=== PATIENT | female | born 1955 | race Caucasian/White ===

== ENCOUNTER → 2023-12-30 15:54 | Outpatient (CLI) | payer MEDICARE, OTHER, SELFPAY ==
[2023-12-30 16:43] LABS: COVID-19 CEPHEID 4-PLEX PCR Negative (Negative); Influenza A - CEPHEID Flu A NEGATIVE (NEGATIVE); Influenza B - CEPHEID Flu B NEGATIVE (NEGATIVE); Respiratory Syncytial Virus Negative (Negative)
== END ==
PROVIDERS: PCP Family Medicine; Visit Provider Physician Assistant Surgical
DX: R05.9 Cough, unspecified (principal)
CPT/HCPCS: 0241U

== ENCOUNTER → 2023-12-30 16:01 | Outpatient (CLI) | payer MEDICARE, OTHER, SELFPAY ==
--- NOTE | 2023-12-30 16:06 | DI.RAD.S_ITS ---
PROCEDURE: XR CHEST 2V INDICATIONS: Cough, dyspnea TECHNIQUE: 2 views of the chest were acquired. COMPARISON: None. FINDINGS: Surgical changes and devices: None. Lungs and pleura: Lungs are clear. No pleural effusions or pneumothorax. Underlying chronic interstitial changes Mediastinum: Mediastinal contours are normal. Heart size is normal. Bones and chest wall: No suspicious bony abnormalities. Soft tissues appear unremarkable. IMPRESSION: Chronic interstitial changes without acute infiltrate or pleural effusion Approved by: Ryan Sharp M.D. on 12/30/2023 at 16:27
== END ==
LOC: RAD 16:05
PROVIDERS: PCP Family Medicine; Referring Provider Physician Assistant Surgical; Visit Provider Physician Assistant Surgical
DX: R05.9 Cough, unspecified (principal); R06.00 Dyspnea, unspecified
CPT/HCPCS: 0241U; 71046

== ENCOUNTER → 2024-01-15 15:46 | Outpatient (CLI) | payer MEDICARE, OTHER, SELFPAY ==
[2024-01-15 17:36] LABS: Add Manual Diff / Slide Review NO; Basophils Absolute Auto 0 /uL (0-100); Basophils Percent Auto 0.3 % (0-2); Eosinophils Absolute Auto 200 /uL (0-450); Eosinophils Percent Auto 2.9 % (2-4); Hematocrit 40.6 % (36-46); Hemoglobin 13.5 g/dL (12.0-16.0); Lymphocytes Absolute Auto 1600 /uL (1100-4500); Lymphocytes Percent Auto 19.4 % (25-40); Mean Corpuscular HGB Conc 33.2 % (30-36); Mean Corpuscular Hemoglobin 29.3 PG (26-34); Mean Corpuscular Volume 88.1 fL (80-100); Monocytes Absolute Auto 700 /uL (0-900); Monocytes Percent Auto 8.3 % (3-14); Neutrophils Absolute Auto 5700 /uL (1500-7000); Neutrophils Percent Auto 69.1 % (50-75); Platelet Count 398 X10^3/uL (150-400); Red Blood Cell Count 4.61 X10^6/uL (4.0-5.2); Red Cell Distribution Width 13.9 % (11.6-14.8); White Blood Cell Count 8.2 X10^3/uL (4.5-11.0)
[2024-01-15 18:37] LABS: Alanine Aminotransferase 20 IU/L (<35); Albumin 4.4 g/dL (3.5-5.0); Albumin Globulin Ratio 1.4 (1.0-2.8); Alkaline Phosphatase 93 U/L (38-126); Aspartate Aminotransferase 34 IU/L (14-36); BUN Creatinine Ratio 11.6 (6-22); Bilirubin Total 0.6 mg/dL (0.2-1.3); Blood Urea Nitrogen 8 mg/dL (7-17); Calcium 9.8 mg/dL (8.4-10.2); Carbon Dioxide 30 mmol/L (22-32); Chloride 105 mmol/L (98-107); Cholesterol 206 mg/dL (140-199); Estimated Glomerular Filt Rate > 60 mL/min (>60); Globulin 3.1 g/dL (1.7-4.1); Glucose 89 mg/dL (80-110); HDL Cholesterol 58 mg/dL (40-60); HEMOLYSIS < 15 (0-50); LDL Cholesterol Calculated 109 mg/dL (<100); Potassium 3.8 mmol/L (3.4-5.1); Sodium 138 mmol/L (137-145); Total Protein 7.5 g/dL (6.3-8.2); Triglycerides 197 mg/dL (35-150)
[2024-01-15 18:41] LABS: Hemoglobin A1C% w Est Avg Glu 5.9 % (4.0-6.0)
== END ==
PROVIDERS: PCP Family Medicine; Referring Provider Family Medicine; Visit Provider Family Medicine
DX: Z00.00 Encounter for general adult medical examination without abnormal findings (principal); I10 Essential (primary) hypertension; Z76.89 Persons encountering health services in other specified circumstances; E66.9 Obesity, unspecified
CPT/HCPCS: 36415; 80053; 80061; 83036; 85025

== ENCOUNTER 2024-07-11 08:50 | Day surgery (SDC) | payer MEDICARE, OTHER, SELFPAY ==
[2024-07-09 09:09] VITALS: BMI 31.1
[2024-07-11] VITALS (11 sets, daily range): BP systolic 86–138; BP diastolic 39–87; PULSE 62–84; RESP 12–21; TEMP 36.4–36.7; O2SAT 95–100; BMI 29.3
[2024-07-11] MEDS: LACTATED RINGERS 1,000 ML 42 ML IV (09:41)
--- NOTE | 2024-07-11 10:11 | PM.PREOP ---
Pre-operative Note COVID-19 COVID-19 status: Not tested Interval Note History & Physical reviewed/Exam performed by Physician: Yes Changes to H&P: No
[2024-07-11] MEDS: CEFAZOLIN 2 GM/100 ML PREMIX 100 ML IV (10:28)
--- NOTE | 2024-07-11 10:41 | SUR.OPER ---
Lithotomy on padded OR bed, head on pillow, arms secured on padded arm boards at <90 degrees abduction. Legs secured in padded yellow fins stirrups.
[2024-07-11] MEDS: BUPIVACAINE 0.25% (PF) 30 ML, EPINEPHrine 0.15 MG INJ (10:43)
[2024-07-11] MEDS: TRANEXAMIC ACID 1,000 MG VIAL 1000 MG INJ (12:09)
[2024-07-11] MEDS: LACTATED RINGERS 1,000 ML 500 ML IV (14:06)
--- NOTE | 2024-07-11 14:37 | P.OP_ITS ---
Operative Date/Time/Diagnoses Date of procedure: 07/11/24 Time of procedure: 10:30 Pre-op diagnosis: Uterovaginal prolapse, complete Post-op diagnosis: same Procedure & Clinicians Procedure: Procedures Operation Date: 07/11/24 10:15 Actual Procedure Side Surgeon janet Narvaez Colpocleisis & Perineoplasty José Miguel Alonzo MD Indications: Daniela is a 68-year-old , LMP at about age 48 who presented with several years of gradually worsening bulge per vagina. Her symptoms have worsened particularly since the menopause. Patient has not been on and is not currently on hormone replacement therapy. She denies any episodes of postmenopausal bleeding. Patient denies any history of YESSICA or any difficulty with bowel movements but does state that she has to reduce the vaginal bulge in order for her to effectively empty her bladder. Patient's obstetrical history is notable for 5 spontaneous vaginal births with her largest being in excess of 10 lb..The nature of her pelvic organ prolapse discussed at length along with causes and options for treatment. Patient is not sexually active and does not anticipate ever again participating in penetrative vaginal intercourse. She does not wish to try pessary use but instead would prefer to proceed with colpocleisis. Pap smear obtained and submitted. Pelvic ultrasound to evaluate endometrial stripe ordered but imaging was unable to be performed due to prolapse according to radiology. She has had no episodes of postmenopausal bleeding. After discussion regarding all options, the patient has decided to move forward with colpocleisis and perineoplasty. She presents today for her scheduled surgery. Surgeon: José Miguel Alonzo Anesthesia Type: General Operative Notes Findings: Complete UV prolapse with extensive mucosal ulcerations. Closure Type: primary Specimen(s): none Applied: catheter Estimated blood loss (mL): 200 Blood products transfused: none Procedure in detail: With the patient under satisfactory general endotracheal anesthesia in the mo dified dorsal lithotomy position, the vagina, perineum, and lower abdominal wall were prepped and draped in the usual manner for colpocleisis. A pre-surgical safety time-out was then taken in accordance with [facility] OR protocols. A short weighted speculum was placed in the vagina and the vaginal cuff identified visually. The vaginal cuff was grasped with 2 T clamps and mobilized downward. The area of mucosal incision anteriorly starting 2 cm distal to the vaginal cuff scar, 3 cm in width, and extending distal to 4 cm from the hymeneal ring was made with marking pen. Posteriorly a similar rectangle was marked from 2 cm distal to the vaginal cuff posteriorly, 3 cm in width and extending to within 4 cm of the posterior hymenal ring. Vaginal mucosa both anterior and posterior which was to be excised was infiltrated with 0.25% Marcaine with epinephrine. The mucosa both anterior and posterior was excised with sharp and blunt dissection. The most cephalic edges of the mucosa were then brought together with 2-0 Vicryl interrupted. The denuded anterior and posterior tissues were then brought together with 2-0 Vicryl using [id number] stitches at consecutive levels followed by approximation of the lateral mucosa with 2-0 Vicryl interrupted. Five layers of [id number] stitches and lateral interrupted were used to bring the denuded areas of anterior and posterior tissues together in the midline. The distal most vaginal mucosa was then brought together with 2-0 Vicryl interrupted, thus completing the performance of the colpocleisis. A small amount of bleeding was noted at the completion of the colpocliesis which was managed by application of vaginal pressure with sponge sticks and injection of Floseal into each lateral drainage resulting in complate hemostasis prior to performance of the perineoplasty. A nadege-shaped incision of the skin overlying the perineal body up into the distal most vagina was made with monopolar cutting and the mucosa excised in the usual manner. Sharp and blunt dissection was used to expose the distal levators on both sides and 0 Vicryl interrupted were used to approximate the distal levators. Additional 2-0 Vicryl stitches were used to bring the introitus together in midline and substance of the perineal body was also plicated in the midline with 2-0 Vicryl interrupted. The vaginal mucosa was then brought t ogether with 2-0 Vicryl and a running interlocking stitch all the way down to the perineal body. Case was then completed and the patient awakened from general anesthesia. She was then transferred to the PACU for a period of observation and recovery having tolerated procedure well. Complications: none Complications: none Post-operative Condition: stable Disposition: PACU Plan for aftercare: Routine postop care with follow-up scheduled for two weeks or as needed.
--- NOTE | 2024-07-11 14:56 | SUR.PHASEII ---
Pt discharged to home with spouse - upon transfer from bed to chair - pt had large bld clot, small amount of bright red blood pooled in melvin-pad - Dr. Alonzo was consulted with findings - findings reported to him wear cleared as normal and pt could be discharged from Phase II . discharged instructions were reviewed again with pt, verbalize understanding - pt able to void prior to discharge - no clots noted, bright red blood in toilet - small amount
== END 2024-07-11 15:00 | disposition home or self-care (01) ==
LOC: OR 08:51 → AC 08:51
PROVIDERS: PCP Family Medicine; Referring Provider Obstetrics & Gynecology; Visit Provider Obstetrics & Gynecology
PROC: (CPT 57120; principal; 2024-07-11 10:15)
DX: N81.3 Complete uterovaginal prolapse (principal); N76.5 Ulceration of vagina
CPT/HCPCS: 57120; J0171; J0690; J1100; J1885; J2405; J2704; J3010

== ENCOUNTER → 2024-11-04 14:17 | Outpatient (CLI) | payer MEDICARE, OTHER, SELFPAY ==
--- NOTE | 2024-11-04 14:19 | EKG_ITS ---
[place] [id number] [place] [address] Test Date: 2024-11-04 Pat Name: Daniela Abdul Department: [facility] Room: Gender: Female Substance Abuse Specialist: FINA : 1955 Requested By: Order Number: [id number] Reading MD: Jeff Bhardwaj MD Measurements Intervals [place] Rate: 86 P: 18 NH: 162 QRS: -10 QRSD: 84 T: 9 QT: 382 QTc: 457 Interpretive Statements Sinus rhythm with premature atrial complexes Nonspecific ST abnormality Electronically Signed On 11-04-2024 16:57:48 PST by Jeff Bhardwaj MD
[2024-11-04 14:42] LABS: Add Manual Diff / Slide Review NO; Basophils Absolute Auto 0 /uL (0-100); Basophils Percent Auto 0.8 % (0-2); Eosinophils Absolute Auto 200 /uL (0-450); Hematocrit 36.4 % (36-46); Hemoglobin 11.9 g/dL (12.0-16.0); Lymphocytes Absolute Auto 1400 /uL (1100-4500); Lymphocytes Percent Auto 26.2 % (25-40); Mean Corpuscular HGB Conc 32.6 % (30-36); Mean Corpuscular Hemoglobin 26.3 PG (26-34); Mean Corpuscular Volume 80.4 fL (80-100); Monocytes Absolute Auto 400 /uL (0-900); Monocytes Percent Auto 6.6 % (3-14); Neutrophils Absolute Auto 3400 /uL (1500-7000); Neutrophils Percent Auto 63.4 % (50-75); Platelet Count 419 X10^3/uL (150-400); Red Blood Cell Count 4.53 X10^6/uL (4.0-5.2); Red Cell Distribution Width 13.8 % (11.6-14.8); White Blood Cell Count 5.4 X10^3/uL (4.5-11.0)
[2024-11-04 14:45] LABS: Appearance Urine UA CLEAR; Bilirubin Urine UA NEGATIVE (NEGATIVE); Color Urine UA YELLOW; Glucose Urine UA NEGATIVE (Negative); Ketones Urine UA NEGATIVE (NEGATIVE); Leukocyte Esterase Urine UA TRACE (NEGATIVE); Nitrite Urine UA NEGATIVE (Negative); Occult Blood Urine UA NEGATIVE (Negative); Protein Urine UA NEGATIVE (Negative); Urine Volume 10mL (spun)
[2024-11-04 14:46] LABS: Bacteria Urine None Seen; Culture Indicated Urine Cult Not Indicated; RBC Urine None Seen (0-5/HPF); Squamous Epithelial Cell Urine 0-1 /HPF (0-5/HPF); WBC Urine 0-1/HPF (0-5/HPF)
[2024-11-04 14:50] LABS: Hemoglobin A1C% w Est Avg Glu 5.5 % (4.0-6.0)
[2024-11-04 15:06] LABS: BUN Creatinine Ratio 13.6 (6-22); Blood Urea Nitrogen 12 mg/dL (7-17); Calcium 9.6 mg/dL (8.4-10.2); Carbon Dioxide 27 mmol/L (22-32); Chloride 104 mmol/L (98-107); Estimated Glomerular Filt Rate > 60 mL/min (>60); Glucose 125 mg/dL (80-110); HEMOLYSIS < 15 (0-50); Potassium 3.5 mmol/L (3.4-5.1); Sodium 138 mmol/L (137-145)
== END ==
PROVIDERS: PCP Family Medicine; Referring Provider Orthopaedic Surgery; Visit Provider Orthopaedic Surgery
DX: Z01.818 Encounter for other preprocedural examination (principal); R73.9 Hyperglycemia, unspecified; Z01.812 Encounter for preprocedural laboratory examination; N39.0 Urinary tract infection, site not specified
CPT/HCPCS: 36415; 80048; 81001; 83036; 85025; 93005